=== PATIENT | male | born 1940 | race Caucasian/White ===

== ENCOUNTER → 2021-08-15 | Outpatient (CLI) | payer MEDICARE | LOC: COL.RAD 08:07 | DX: R35.0 Frequency of micturition (principal); R35.1 Nocturia ==

== ENCOUNTER 2022-06-26 09:36 | Day surgery (SDC) | payer MEDICARE ==
[~2022-06-26] VITALS: Ht 175.3 cm; Wt 93.4 kg
[2022-06-26 09:58] VITALS: BP 108/68; PULSE 78; TEMP 97.2
[2022-06-26] MEDS ORDERED: UROXATRAL10 M1 PO (10:25)
[2022-06-26] MEDS ORDERED: [UNRECOGNIZED DRUG - OTHER] PO (10:26)
[2022-06-26] MEDS ORDERED: ASPIRIN E.C. 8181 MG PO (10:27)
[2022-06-26] MEDS ORDERED: LIPITOR20 MG PO (10:28)
[2022-06-26] MEDS ORDERED: ZETIA 10MG TAB10 MG PO (10:29)
[2022-06-26] MEDS ORDERED: SYNTHROID0.1 MG/TAB PO (10:29)
[2022-06-26] MEDS ORDERED: MELATONIN5 M1 SL (10:30)
[2022-06-26] MEDS ORDERED: ANDROGEL1.62% TOP (10:31)
[2022-06-26] MEDS ORDERED: REMERON 15M15 MG/TA1 PO (10:31)
[2022-06-26] MEDS ORDERED: DESYREL 50MG50 MG PO (10:32)
[2022-06-26] MEDS ORDERED: MASON NATURAL2000 IU PO (10:33)
[2022-06-26] MEDS ORDERED: KLONOPIN 0.5MG0.5 MG PO ×2 (10:34→10:37)
[2022-06-26] MEDS ORDERED: BUSPAR10 MG PO (10:34)
[2022-06-26] MEDS ORDERED: AQUAPHOR OINTM396 GM TP (10:34)
[2022-06-26] MEDS ORDERED: TOPROL XL 25MG25 MG PO (10:35)
[2022-06-26] MEDS ORDERED: TRIAM OI 0.1 454 TOP (10:35)
[2022-06-26] MEDS ORDERED: TYLENOL 500MG500 MG PO (10:36)
[2022-06-26] MEDS ORDERED: SINEMET 25/101 UDTAB PO (10:36)
[2022-06-26] MEDS ORDERED: MIRALAX510G PO (10:38)
[2022-06-26 11:15] VITALS: BP 122/82; PULSE 74; TEMP 97.2
--- NOTE | 2022-06-26 11:15 | NUR ---
1115 PATIENT RETURNS TO ROOM 4 VIA CART. PATIENT STAYS ON CART IN ROOM. PATIENT IS DROWSY, ALERTS TO VERBAL STIMULI. PATIENT DAUGHTER IS IN ROOM. RESPIRATIONS EVEN AND UNLABORED. VITAL SIGNS OBTAINED. 1120 PATIENT REQUEST WATER AND APPLE JUICE. NO DIFFICULTIES SWALLOWING. 1125 DOCTOR IN TO SPEAK WITH PATIENT AND PATIENT DAUGHTER. 1135 THIS NURSE REVIEWED DISCHARGE INSTRUCTIONS. BOTH PATIENT AND PATIENT DAUGHTER VERBALIZE UNDERSTANDING. 1145 DISCONTINUE IV FROM RIGHT FOREARM WITH NO DIFFICULTIES. 1147 PATIENT DRESSES SELF WITH ASSISTANCE FROM DAUGHTER. 1155 PATIENT DISCHARGES FROM UNIT VIA WHEELCHAIR.
[2022-06-26 11:30] VITALS: BP 133/82; PULSE 81
[2022-06-26 11:45] VITALS: BP 135/77; PULSE 70
== END 2022-06-26 11:55 | disposition home or self-care (01) ==
LOC: SDCO 09:36
DX: K57.32 Diverticulitis of large intestine without perforation or abscess without bleeding (principal); R19.7 Diarrhea, unspecified; Z87.891 Personal history of nicotine dependence
CPT/HCPCS: J2704; J3010; J7120